=== PATIENT | female | born 1965 | race Caucasian/White ===

== ENCOUNTER 2016-11-14 13:42 | Emergency (ER) | payer BC ==
[2012-09-13 18:15] VITALS: BMI 36.3
[2016-11-14 14:34] LABS: BASOPHILS 0.4 % (0-2); EOSINOPHILS 1.6 % (0-7); HEMATOCRIT 45.2 % (36.0-48.0); HEMOGLOBIN 14.9 g/dL (12-16); IMMATURE GRANULOCYTES 0.3 % (0-5); LYMPHOCYTES 47.2 % (15-50); MCH 30.5 pg (26.0-34.0); MCV 92.6 fL (80.0-100.0); MEAN PLATELET VOLUME 9.4 fL (7.4-10.4); MONOCYTES 6.8 % (2-11); NEUTROPHILS 43.7 % (40-80); PLATELET COUNT 292 10x3/uL (130-400); RBC 4.88 10x6/uL (4.00-5.40); RDW 13.9 % (11.5-14.5); WBC 10.2 10x3/uL (4.8-10.8)
[2016-11-14 14:43] LABS: APPEARANCE HAZY (CLEAR); BILIRUBIN NEGATIVE (NEGATIVE); COLOR YELLOW (YELLOW); GLUCOSE NEGATIVE (NEGATIVE); KETONE NEGATIVE (NEGATIVE); LEUKOCYTE ESTERASE 2+ (NEGATIVE); NITRITE NEGATIVE (NEGATIVE); PROTEIN TRACE mg/dL (NEGATIVE); UROBILINOGEN NORMAL (NORMAL)
[2016-11-14 14:45] LABS: BACTERIA MODERATE /hpf (NONE SEEN); MUCUS <1+ /lpf (NONE SEEN); WHITE CELLS - URINE >50 /hpf (0-5)
[2016-11-14 14:57] LABS: ALBUMIN 3.8 g/dL (3.4-5.0); ALKALINE PHOSPHATASE 67 U/L (46-116); ALT (SGPT) 49 U/L (10-68); CALC OSMOLALITY 284 mosm/kg (275-300); CALCIUM 9.6 mg/dL (8.5-10.1); CARBON DIOXIDE 31.4 mmol/L (21.0-32.0); CHLORIDE - SERUM 101 mmol/L (98-107); CREATININE - SERUM 0.8 mg/dL (0.6-1.3); POTASSIUM - SERUM 3.9 mmol/L (3.5-5.1); PROTEIN - SERUM 7.6 g/dL (6.4-8.2); SODIUM 140 mmol/L (136-145); UREA NITROGEN 17 mg/dL (7-18); eGFR NON AFRICAN AMERICAN 79 mL/min (90-120)
[2016-11-14 15:00] LABS: GLUCOSE 171 mg/dL (74-106)
== END 2016-11-14 21:50 | disposition home or self-care (01) ==
LOC: D.ER 13:42
PROVIDERS: Emergency Medicine
DX: N12 Tubulo-interstitial nephritis, not specified as acute or chronic (principal); N39.0 Urinary tract infection, site not specified; E11.9 Type 2 diabetes mellitus without complications; I10 Essential (primary) hypertension; F17.200 Nicotine dependence, unspecified, uncomplicated

== ENCOUNTER → 2017-03-07 16:56 | Outpatient (CLI) | payer MEDICAID ==
[2012-09-13 18:15] VITALS: BMI 36.3
== END | disposition home or self-care (01) ==
LOC: D.MAMMO 13:00
DX: N63 Unspecified lump in breast (principal)

== ENCOUNTER 2017-05-28 14:20 | Emergency (ER) | payer MEDICARE ==
[2012-09-13 18:15] VITALS: BMI 36.3
[2017-05-28 15:27] LABS: BASOPHILS 0.3 % (0-2); EOSINOPHILS 1.1 % (0-7); HEMATOCRIT 46.8 % (36.0-48.0); HEMOGLOBIN 15.8 g/dL (12-16); IMMATURE GRANULOCYTES 0.2 % (0-5); LYMPHOCYTES 44.5 % (15-50); MCH 30.6 pg (26.0-34.0); MCHC 33.8 g/dL (31.0-37.0); MCV 90.5 fL (80.0-100.0); MEAN PLATELET VOLUME 9.8 fL (7.4-10.4); MONOCYTES 6.7 % (2-11); NEUTROPHILS 47.2 % (40-80); PLATELET COUNT 323 10x3/uL (130-400); RBC 5.17 10x6/uL (4.00-5.40); RDW 14.3 % (11.5-14.5)
[2017-05-28 15:31] LABS: APPEARANCE HAZY (CLEAR); BILIRUBIN NEGATIVE (NEGATIVE); COLOR YELLOW (YELLOW); GLUCOSE NEGATIVE (NEGATIVE); KETONE NEGATIVE (NEGATIVE); NITRITE NEGATIVE (NEGATIVE); PROTEIN 2+ mg/dL (NEGATIVE); SPECIFIC GRAVITY 1.025 (1.005-1.020); UROBILINOGEN NORMAL (NORMAL)
[2017-05-28 15:37] LABS: BACTERIA MANY /hpf (NONE SEEN); EPITHELIAL CELLS 0-5 /hpf (0-5); MUCUS <1+ /lpf (NONE SEEN); RED CELLS - URINE >50 /hpf (0-5); WHITE CELLS - URINE >50 /hpf (0-5)
[2017-05-28 15:38] LABS: GRANULAR CAST OCC /lpf (NONE SEEN); HYALINE CAST RARE /lpf (NONE SEEN)
[2017-05-28 15:48] LABS: ALBUMIN 3.3 g/dL (3.4-5.0); ANION GAP 14.4 mmol/L (8-16); BILIRUBIN - TOTAL 0.5 mg/dL (0.2-1.3); CALCIUM 9.5 mg/dL (8.5-10.1); CARBON DIOXIDE 27.3 mmol/L (21.0-32.0); CREATININE - SERUM 0.9 mg/dL (0.6-1.3); POTASSIUM - SERUM 3.7 mmol/L (3.5-5.1); PROTEIN - SERUM 7.1 g/dL (6.4-8.2)
[2017-06-07] MEDS ORDERED: BENICAR HCT 20-1 TA1 PO (08:14)
[2017-06-07] MEDS ORDERED: SYNTHROID50 MCG PO (08:14)
[2017-06-07] MEDS ORDERED: CELEXA40 MG PO (08:15)
[2017-06-07] MEDS ORDERED: GLIMEPIRIDE2 MG PO (08:15)
[2017-06-07] MEDS ORDERED: GLUCOPHAGE500 MG PO (08:15)
[2017-06-07] MEDS ORDERED: MULTI-DAY VITAM1 TAB PO (08:16)
[2017-06-07] MEDS ORDERED: PROBIOTIC1 EAC1 PO (08:16)
[2017-06-07] MEDS ORDERED: ACTOS45 MG PO (08:16)
[2017-06-07] MEDS ORDERED: COENZYME Q10 PO (08:17)
[2017-06-07] MEDS ORDERED: KRILL OIL PO (08:17)
[2017-06-07] MEDS ORDERED: OMEPRAZOLE20 M1 PO (08:17)
[2017-06-07] MEDS ORDERED: PRIMROSE OIL PO (08:17)
[2017-06-07] MEDS ORDERED: OMEGA 3 FISH OI1 CAP PO (08:18)
[2017-06-08 20:10] VITALS: BMI 37.8
== END 2017-05-28 17:13 | disposition home or self-care (01) ==
LOC: D.ER 14:20
PROVIDERS: Nurse Practitioner Family
DX: N39.0 Urinary tract infection, site not specified (principal); N13.30 Unspecified hydronephrosis; N23 Unspecified renal colic; K21.9 Gastro-esophageal reflux disease without esophagitis; E03.9 Hypothyroidism, unspecified

== ENCOUNTER → 2017-05-31 11:06 | Outpatient (CLI) | payer MEDICARE ==
[2012-09-13 18:15] VITALS: BMI 36.3
[~2017-05-31 11:06] MED LIST: ACTOS45 MG PO; BENICAR HCT 20-1 TA1 PO; CELEXA40 MG PO; COENZYME Q10 PO; GLIMEPIRIDE2 MG PO; GLUCOPHAGE500 MG PO; KRILL OIL PO; MULTI-DAY VITAM1 TAB PO; NORCO 7.5/325 T1 TA1 PO; OMEGA 3 FISH OI1 CAP PO; OMEPRAZOLE20 M1 PO; PRIMROSE OIL PO; PROBIOTIC1 EAC1 PO; SYNTHROID50 MCG PO
[2017-06-08 20:10] VITALS: BMI 37.8
== END | disposition home or self-care (01) ==
LOC: D.RAD 11:06
DX: N20.0 Calculus of kidney (principal)

== ENCOUNTER 2017-06-08 05:59 | Inpatient (IN) | payer MEDICARE ==
[2017-06-07 08:58] LABS: HEMATOCRIT 45.3 % (36.0-48.0); MCH 30.5 pg (26.0-34.0); MCHC 33.1 g/dL (31.0-37.0); MCV 92.1 fL (80.0-100.0); MEAN PLATELET VOLUME 9.1 fL (7.4-10.4); RBC 4.92 10x6/uL (4.00-5.40); RDW 14.7 % (11.5-14.5); WBC 9.7 10x3/uL (4.8-10.8)
[2017-06-07 09:08] LABS: CALC OSMOLALITY 280 mosm/kg (275-300); CALCIUM 9.3 mg/dL (8.5-10.1); CARBON DIOXIDE 31.2 mmol/L (21.0-32.0); CHLORIDE - SERUM 101 mmol/L (98-107); CREATININE - SERUM 0.7 mg/dL (0.6-1.3); POTASSIUM - SERUM 3.9 mmol/L (3.5-5.1); SODIUM 138 mmol/L (136-145); UREA NITROGEN 18 mg/dL (7-18); eGFR NON AFRICAN AMERICAN > 90 mL/min (90-120)
[2017-06-07 09:14] LABS: GLUCOSE 160 mg/dL (74-106)
[~2017-06-08] VITALS: Ht 154.9 cm; Wt 90.7 kg
--- NOTE | ~2017-06-08 | HEMODYNAMI ---
PATIENT:LYNN WEST MEDICAL RECORD: [id number] : 61 LOCATION:D.RYAN ADMISSION DATE: 06/08/17 Generatedon:06/08/201710:54 Patient name: LYNN WEST Patient #: [id number] SSN: D OB: 1965 Date of study: 06/08/2017 Page: Of Hemodynamic Procedure Report Patient Data Patient Demographics Procedure consent was obtained First Name: LYNN Gender: Female Last Name: JENNA : 1965 Middle Initial: RAFITA Age: 52 year(s) Patient #: [id number] Race: Unknown Additional ID: [id number] Contact details [address]: [address] [place] [address] [place] State: [place] City: [place] Zip code: [address] Admission Admission Data Admission Date: 06/08/2017 Admission Time: 5:59 Procedure Procedure Types Cath Procedure Peripheral Cath Diagnostic Procedure Miscellaneous Procedure Description Procedure Date Procedure Date: 06/08/2017 Procedure Start Time: 10:20 Procedure Staff Name Function Chandler Zabala MD Performing Physician Bo Johnston RT Monitor Cindi Padron RT Scrub Linda Granados RN Nurse Procedure Data Cath Procedure Fluoroscopy Diagnostic fluoroscopy Total fluoroscopy Time: 8.9 time: 8.9 min min Diagnostic fluoroscopy Total fluoroscopy dose: 138 dose: 138 mGy mGy Contrast Material Contrast Material Type Amount (ml) Isovue 300 15 Procedure Medications Medication Administration Route Dosage Fentanyl I.V. 50 mcg Versed I.V. 1 mg Fentanyl I.V. 50 mcg Versed I.V. 1 mg Fentanyl I.V. 50 mcg Versed I.V. 1 mg Hemodynamics Rest Heart Rate: 58 (bpm) Snapshots Pre Cath Intra NCS Post Cath Vital Signs Time Heart Resp SPO2 etCO2 NIBP (mmHg) Rhythm Pain Sedation Rate (ipm) (%) (mmHg) Status Level (bpm) 9:53:57 52 21 99 37.2 157/84(118) NSR 0 (11) 10(A) , No pain 9:58:21 52 13 99 44 135/74(106) NSR 0 (11) 10(A) , No pain 10:03:21 52 10 99 46.4 Measuring NSR 0 (11) 10(A) , No pain 10:03:59 54 11 98 44.9 150/71(118) NSR 0 (11) 10(A) , No pain 10:08:28 52 20 98 41 112/75(107) NSR 0 (11) 10(A) , No pain 10:13:27 59 10 98 46.4 Measuring NSR 0 (11) 10(A) , No pain 10:13:41 70 9 99 30.4 148/88(122) NSR 0 (11) 10(A) , No pain 10:18:09 55 10 98 48.7 161/84(122) NSR 0 (11) 10(A) , No pain 10:22:40 51 32 98 54.7 154/81(124) NSR 0 (11) 10(A) , No pain 10:27:02 58 11 91 32.7 148/83(112) NSR 0 (11) 10(A) , No pain 10:31:22 59 9 95 31.2 150/89(125) NSR 0 (11) 10(A) , No pain 10:35:53 61 12 96 41 143/80(122) NSR 0 (11) 10(A) , No pain 10:40:51 72 19 98 37.2 Measuring NSR 0 (11) 10(A) , No pain 10:41:20 68 15 97 35 166/81(118) NSR 0 (11) 10(A) , No pain 10:45:55 63 19 95 36.5 149/85(126) NSR 0 (11) 10(A) , No pain 10:50:11 67 16 95 37.3 127/91(122) NSR 0 (11) 10(A) , No pain 10:54:27 65 11 95 40.3 142/89(126) NSR 0 (11) 10(A) , No pain Medications Time Medication Route Dose Verified Delivered Reason Notes Effectivene ss by by 10:22:30 Fentanyl I.V. 50 Chandler Mckeon for olesya Granados RN sedation 10:22:41 Versed I.V. 1 mg Chandler Mckeon for Vj Granados RN sedation 10:25:45 Fentanyl I.V. 50 Chandler Linda for mcg Vj Granados RN sedation 10:25:57 Versed I.V. 1 mg Chandler Linda for Vj Granados RN sedation 10:42:39 Fentanyl I.V. 50 Chandler Linda for mcg Vj Granados RN sedation 10:42:50 Versed I.V. 1 mg Chandler Linda for Vj Granados RN sedation Procedure Log Time Note 9:29:33 Bo Johnston RT (R) (CV) sent for patient. Start room use. 9:29:47 Time tracking: Regular hours 9:29:54 Plan of Care:Hemodynamics will remain stable., Cardiac rhythm will remain stable., Comfort level will be maintained., Respiratory function will remain adequate., Patient/ family verbilizes understanding of procedure., Procedure tolerated without complication., Recovers from procedure without complications.. 9:30:14 Patient received from Outpatients to IR Alert and oriented. Tansferred to table in Prone position. 9:30:16 Correct patient and procedure confirmed by team. 9:30:20 Signed procedure consent form obtained from patient. 9:30:21 ECG and BP/O2 sat monitors applied to patient. 9:30:22 - 9:30:28 Full Disclosure recording started 9:30:34 H&P Date Dictated: 06/08/2017 Within 30 days and on chart.. 9:30:35 Pre-procedure instructions explained to patient. 9:30:36 Pre-op teaching completed and patient verbalized understanding. 9:30:38 Family in waiting room. 9:30:40 Patient NPO since Midnight. 9:30:51 Is the patient allergic to Iodine/contrast media? No. 9:30:53 Is patient on blood thinner?No 9:30:55 Patient diabetic? No. 9:31:01 - 9:31:02 ----Pre-sedation anethsthesia assessment.---- 9:31:05 Previous problem with sedation/anesthesia? No ? 9:34:13 Snore? Yes 9:34:15 Sleep apnea? No 9:34:16 Deviated septum? No 9:34:17 Opens mouth fully? Yes 9:34:19 Sticks out tongue? Yes 9:34:21 Airway obstruction? No ? 9:34:24 Dentures? No ? 9:34:35 Patient pain scale 0/10 no pain. 9:34:39 Use device set IR Diagnostic 9:34:40 Bag Decanter (2001S) opened to sterile field. 9:34:41 Sterile Angiographic Pack opened to sterile field. 9:52:36 Vital chart was started 9:52:37 Baseline sample Acquired. 10:17:15 IV patent on arrival in right forearm with 0.9% NaCl at [facility]. 10:17:17 Sharps counted by scrub and verified by R.N. 10:17:17 Alarms reviewed by R. N. 10:17:25 Left abdomen area was prepped with chlora-prep and draped in sterile fashion 10:20:08 Physician arrived 10:20:08 --------ALL STOP TIME OUT------ 10:20:12 Final Timeout: patient, procedure, and site verified with staff and physician. All members of the team are in agreement. 10:20:17 Left abdomen site verified by team. 10:20:22 Sedation plan: IV Moderate Sedation Medication:Versed, Fentanyl 10:20:32 Procedure started. 10:20:55 Local anesthetic to Lumbar area with Lidocaine 1% by Chandler Zabala MD.INITIAL ACCESS ONLY 10:21:06 Terumo 5FR ANGLED 65CM glide catheter opened to sterile field. 10:21:07 KIT, INTRODUCER ACCUSTICK II W/C ([id number]) opened to sterile field. 10:22:30 Fentanyl 50 mcg I.V. was administered by Linda Granados RN; for sedation ; 10:22:41 Versed 1 mg I.V. was administered by Linda Granados RN; for sedation; 10:25:45 Fentanyl 50 mcg I.V. was administered by Linda Granados RN; for sedation ; 10:25:57 Versed 1 mg I.V. was administered by Linda Granados RN; for sedation; 10:34:41 EV3 NITINOL .018 80CM guide wire opened to sterile field. 10:38:39 Terumo ANGLE 260cm glide wire opened to sterile field. 10:39:04 TORQUE DEVICE PLASTIC .038 ( TD01) opened to sterile field. 10:40:[address] .035 145 glide wire opened to sterile field. 10:42:39 Fentanyl 50 mcg I.V. was administered by Linda Granados RN; for sedation ; 10:42:50 Versed 1 mg I.V. was administered by Linda Granados RN; for sedation; 10:44:50 SUTURE ETHILON 2-0 BLK MONO FS opened to sterile field. 10:46:17 Procedure ended.(Physican Out) 10:46:35 Fluoroscopy time 08.90 minutes. 10:46:40 Fluoroscopy dose: 138 mGy 10:46:40 Flurop Dose total: 138 10:46:48 Contrast amount:Isovue 300 15ml. 10:46:50 Insertion/operative site no bleeding no hematoma. 10:46:57 Post Lumbar area:stable 10:47:01 Post procedure instruction explained to patient.Patient verbalizes understanding. 10:54:06 Procedure and supply charges have been captured, reviewed, submitted an d are correct. 10:54:21 Report given to Outpatients. 10:54:24 Patient transfered to Outpatients with Stretcher. 10:54:48 Vital chart was stopped Device Usage Item Name Manufacture Quantity Catalog Hospital Part Current Minimal Lot# / Number Charge Number Stock Stock Serial# Code Bag Decanter Microtek 1 [id number] [id number] 5 () [employer] Sterile Cardinal 1 [id number] 346028 [id number] 5 Angiographic Health Pack Terumo 5FR Terumo 1 [id number] 096525 5 ANGLED 65CM glide catheter KIT, [place] 1 [id number] 165269 202021 320998 5 INTRODUCER Scientific ACCUSTICK II W/C ([id number]) EV3 NITINOL Ev3 1 [id number] 702167 [id number] 5 [id number] .018 80CM guide wire Terumo ANGLE Terumo 1 [id number] 221477 197473 100899 5 260cm glide wire TORQUE [place] 1 TD01 489542 215879 545726 5 DEVICE Scientific PLASTIC .038 ( TD01) [facility] 1 [id number] 061828 749528 5 [id number] [facility] .[facility] 145 glide wire SUTURE Ethicon 1 [id number] 826141 5 ETHILON 2-0 BLK MONO FS Signature Audit [place] Stage Time Signature Unsigned Intra-Procedure 06/08/2017 Bo 10:54:44 AM Preston RT (R) (CV) Signatures Monitor : Bo Signature : Preston RT Date : Time : [facility] [address] [place] [address]
--- NOTE | ~2017-06-08 | OP ---
PATIENT NAME: LYNN WEST MEDICAL RECORD: [id number] :61 LOCATION:D.MS [facility]2224 ADMISSION DATE:06/08/17 SURGEON: MAXWELL DC MD DATE OF OPERATION: 06/09/2017 SURGEON: Maxwell Dc MD ANESTHESIA: General anesthesia by Corry Soto CRNA PREOPERATIVE DIAGNOSIS: A 16-mm left renal stone. PROCEDURES: Cystoscopy, left percutaneous nephrolithotomy (PCNL). FINDINGS: Radiodense 16 mm left renal pelvis stone. ESTIMATED BLOOD LOSS: Less than 100 mL. 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 She has a history of kidney stones. She has been complaining of left lower quadrant abdominal pain with nausea for the past 3-4 months. At that time, she was uninsured until her disability kicked in and so she could not seek medical attention. Finally, she had a CT scan of the abdomen and pelvis performed through the Emergency Room that shows a 16-mm stone lodged in the left kidney. There is also possible 14-mm subcapsular calcification on the CT scan. She says that previously she was treated by Dr. 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 She comes to have the large renal stone removed by a percutaneous nephrolithotomy. Yesterday, she had a left nephroureteral access placed. She was actually scheduled for surgery yesterday. However, it was discovered that we did not have the NephroMax tract dilation balloon and we do not have any other means of dilating the tract. Therefore, the surgery had to be canceled. I admitted her to the hospital for pain control and today we are doing the surgery as this piece of equipment has arrived from the suppliers. She has allergies to ASPIRIN and MORPHINE. She was given Ancef precision assembler bench to the OR. DESCRIPTION OF PROCEDURE: The patient was given induction of general anesthetic while she was in supine position on the stretcher. Once she was asleep, we put her legs into frog leg position and prepped and draped her. Cystoscopy was performed and using grasping forceps, the left nephroureteral stent was accessed and pulled out of the urethra. This will allow our wire coming from the kidney to exit through the urethra where we can clamp it off to prevent backward migration, loss of the access tract. After the nephroureteral catheter was placed out through the urethra, we placed a 16-Kyrgyz Allen catheter for bladder drainage during the procedure. The Allen catheter was removed at the end of the case. We then turned the patient into the prone position on the Choco frame. We made sure that all pressure points were padded. The patient was then reprepped and redraped. We accessed the nephroureteral catheter. An Amplatz Super Stiff wire was placed into the lumen of the nephroureteral catheter and the wire was fed until it exited through the urethra. At this point, the circulating nurse was able to put a hemostat on the wire to prevent backwards migration of the wire. The nephroureteral catheter was then removed entirely by pulling it antegrade. We OPERATIVE REPORT [id number] LYNN WEST made an incision on either side of the wire. A #11 blade was used for this. We then were able to place the dual lumen catheter into the proximal ureter. Through the second lumen, we placed a Sensor wire to serve as a safety wire. Once the wires were in place, the dual lumen catheter was removed. The Sensor wire was clamped to the drapes to serve as our safety wire. We worked over the Super Stiff wire. The NephroMax tract dilation balloon was then inserted. The proximal tip of the balloon was inserted in the region of the UP junction. The balloon was inflated to 20 atmospheres of pressure and the working sheath was then slid down over the balloon into the kidney, renal pelvis. The balloon was then deflated and the access sheath was used to allow our scope to enter into the renal pelvis. With the balloon removed and the nephroscope from the kidney, we were still unable to identify the very large centrally located renal stone. The [place]i LithoClast device in the ultrasonic modality was used to completely break up the stone and remove the pieces. In a short period of time, the stone was entirely removed. There were also some small little punctate stones in the lower pole calices, which our irrigation and the [place]i LithoClast managed to fully remove. At the end of the procedure under fluoroscopy, we could not see any further radiodensities. I also looked as well as I could into every trey and did not see any further stones. At this point, we inserted our 24-Kyrgyz Malecot nephrostomy tube into the renal pelvis. The stylet of the Malecot was removed allowing the Malecot wings to expand. The safety wire was removed entirely. The Super Stiff wire was removed by pulling it downwards and completely out through the urethra. The circulating nurse was asked to do this function. The working sheath was removed. The nephrostomy tube was sutured to the skin using a 2-0 nylon stitch. The nephrostomy tube was then put to bag drainage. Allen catheter was removed. A dressing was applied over the nephrostomy tube consisting of 4 x 4 gauze and an ABD pad and tape. Finally, the patient was awakened and brought to the recovery room. TRANSINT:[id number] Voice Confirmation ID: [id number] DOCUMENT ID: [id number] MAXWELL DC MD at 1513 CC: [id number] DICTATION DATE: 06/09/17 165 THERAPEUTIC DIETITIAN: 06/09/17 1748 ADM IN [place] [address] [place] [address]
[~2017-06-08 05:59] MED LIST changes: -NORCO 7.5/325 T1 TA1 PO
[2017-06-08 08:40] VITALS: BP 121/61; BMI 37.8
[2017-06-08 08:49] LABS: APTT 27.8 SECONDS (22.8-39.4); INR 0.88 (0.85-1.17); PROTIME 11.5 SECONDS (11.6-15.0)
[2017-06-08 16:15] VITALS: BP 154/61
[2017-06-08 19:38] VITALS: BP 120/65
[2017-06-08 20:10] VITALS: BP 120/65; Ht 154.9 cm; Wt 90.7 kg
[2017-06-09] VITALS (7 sets, daily range): BP systolic 110–148; BP diastolic 53–74
[2017-06-10 08:45] VITALS: BP 147/71
[2017-06-10 12:45] VITALS: BP 161/77
[2017-06-10 17:29] VITALS: BP 111/69
[2017-06-11] VITALS: BP 101/43
[2017-06-11 04:00] VITALS: BP 112/57
[2017-06-11 10:47] VITALS: BP 125/48
[2017-06-11] MEDS ORDERED: NORCO 7.5/325 T1 TA1 PO (12:03)
[2017-06-22 17:13] LABS: CALCULI - CA OXALATE DIHYDRATE 70 % (()); CALCULI - CA OXALATE MONOHYDR 20 % (()); CALCULI - CALCIUM PHOSPHATE 10 % (()); CALCULI - COLOR Tan (()); CALCULI - COMMENT Note: (()); CALCULI - WEIGHT 1367.3 mg (())
== END 2017-06-11 14:52 | disposition home or self-care (01) | DRG 661 ==
LOC: D.OPS 05:59 → D.PAN 11:55 → D.OPS 12:30 → D.WS 14:44 → D.MS 14:44
PROVIDERS: Anesthesiology; General Practice; Specialist; Urology
PROC: BT1F1ZZ Fluoroscopy of Left Kidney, Ureter and Bladder using Low Osmolar Contrast (ICD-10-PCS; principal; 2017-06-08 09:30)
PROC: 0TC44ZZ Extirpation of Matter from Left Kidney Pelvis, Percutaneous Endoscopic Approach (ICD-10-PCS; 2017-06-09)
DX: N20.0 Calculus of kidney (principal)

== ENCOUNTER 2017-10-28 13:55 | Inpatient (IN) | payer MEDICARE ==
[~2017-10-28] VITALS: Ht 154.9 cm; Wt 90.9 kg
[~2017-10-28 13:55] MED LIST changes: +NORCO 7.5/325 T1 TA1 PO
[2017-10-28 16:48] LABS: APPEARANCE HAZY (CLEAR); BILIRUBIN NEGATIVE (NEGATIVE); COLOR YELLOW (YELLOW); GLUCOSE NEGATIVE (NEGATIVE); KETONE NEGATIVE (NEGATIVE); NITRITE NEGATIVE (NEGATIVE); PROTEIN NEGATIVE (NEGATIVE); UROBILINOGEN NORMAL (NORMAL)
[2017-10-28 16:52] LABS: EPITHELIAL CELLS 0-5 /hpf (0-5); RED CELLS - URINE 0-5 /hpf (0-5)
[2017-10-28 16:53] LABS: BACTERIA FEW /hpf (NONE SEEN); MUCUS <1+ /lpf (NONE SEEN)
[2017-10-28 17:59] LABS: BASOPHILS 0.4 % (0-2); HEMATOCRIT 44.9 % (36.0-48.0); HEMOGLOBIN 15.1 g/dL (12-16); IMMATURE GRANULOCYTES 0.3 % (0-5); LYMPHOCYTES 48.1 % (15-50); MCH 31.1 pg (26.0-34.0); MCHC 33.6 g/dL (31.0-37.0); MCV 92.6 fL (80.0-100.0); MEAN PLATELET VOLUME 9.3 fL (7.4-10.4); MONOCYTES 6.2 % (2-11); PLATELET COUNT 275 10x3/uL (130-400); RBC 4.85 10x6/uL (4.00-5.40); RDW 14.3 % (11.5-14.5); WBC 9.6 10x3/uL (4.8-10.8)
[2017-10-28 18:16] LABS: ALBUMIN 3.4 g/dL (3.4-5.0); ALKALINE PHOSPHATASE 63 U/L (46-116); ALT (SGPT) 31 U/L (10-68); BILIRUBIN - TOTAL 0.36 mg/dL (0.2-1.3); CALC OSMOLALITY 287 mosm/kg (275-300); CALCIUM 8.9 mg/dL (8.5-10.1); CARBON DIOXIDE 32.3 mmol/L (21.0-32.0); CHLORIDE - SERUM 104 mmol/L (98-107); CREATININE - SERUM 0.8 mg/dL (0.6-1.3); GLUCOSE 112 mg/dL (74-106); POTASSIUM - SERUM 4.1 mmol/L (3.5-5.1); PROTEIN - SERUM 7.4 g/dL (6.4-8.2); SODIUM 143 mmol/L (136-145); UREA NITROGEN 18 mg/dL (7-18); eGFR NON AFRICAN AMERICAN 79 mL/min (90-120)
[2017-10-28 18:17] LABS: C-REACTIVE PROTEIN < 0.2 mg/dL (0.0-0.9)
[2017-10-28 19:03] LABS: ERYTHROCYTE SEDIMENTATION RATE 5 mm/hr (0-30)
[2017-10-28 23:42] VITALS: BP 181/64; BMI 37.8
[2017-10-29 04:00] VITALS: BP 137/53
[2017-10-29 08:21] VITALS: BP 126/69
[2017-10-29 13:02] VITALS: Ht 154.9 cm; Wt 90.9 kg
[2017-10-29 16:35] VITALS: BP 134/41
[2017-10-30 04:20] VITALS: BP 130/41
[2017-10-30 07:42] VITALS: BP 117/52
[2017-10-30 12:24] VITALS: BP 127/52
[2017-10-30 16:42] VITALS: BP 130/69
[2017-10-31 04:00] VITALS: BP 152/65
[2017-10-31 08:29] VITALS: BP 166/63
[2017-10-31] MEDS ORDERED: TORADOL10 MG PO (12:34)
[2017-10-31] MEDS ORDERED: ROBAXIN500 MG PO (12:35)
== END 2017-10-31 15:30 | disposition home or self-care (01) | DRG 552 ==
LOC: D.ER 13:55 → D.EDHOLD 17:51 → D.MS 17:51
PROVIDERS: Nurse Practitioner Family
DX: M51.26 Other intervertebral disc displacement, lumbar region (principal); Q67.5 Congenital deformity of spine; M62.838 Other muscle spasm; S39.012A Strain of muscle, fascia and tendon of lower back, initial encounter; M48.061 Spinal stenosis, lumbar region without neurogenic claudication; X50.0XXD Overexertion from strenuous movement or load, subsequent encounter; E11.9 Type 2 diabetes mellitus without complications; I10 Essential (primary) hypertension; J44.9 Chronic obstructive pulmonary disease, unspecified; E03.9 Hypothyroidism, unspecified; F12.10 Cannabis abuse, uncomplicated; F32.9 Major depressive disorder, single episode, unspecified; L29.9 Pruritus, unspecified; T40.2X5A Adverse effect of other opioids, initial encounter; F17.200 Nicotine dependence, unspecified, uncomplicated

== ENCOUNTER → 2018-01-23 11:54 | Outpatient (CLI) | payer MEDICARE ==
[2017-10-29 13:02] VITALS: BMI 37.8
[~2018-01-23 11:54] MED LIST changes: +ROBAXIN500 MG PO; +TORADOL10 MG PO
== END | disposition home or self-care (01) ==
LOC: D.LABREF 11:54
DX: N39.0 Urinary tract infection, site not specified (principal)

== ENCOUNTER → 2018-02-07 17:40 | Outpatient (CLI) | payer MEDICARE ==
[2017-10-29 13:02] VITALS: BMI 37.8
== END | disposition home or self-care (01) ==
LOC: D.LABREF 17:40
DX: N39.0 Urinary tract infection, site not specified (principal)

== ENCOUNTER → 2018-02-08 15:37 | Outpatient (CLI) | payer MEDICARE ==
[2017-10-29 13:02] VITALS: BMI 37.8
== END | disposition home or self-care (01) ==
LOC: D.CT 15:37
DX: N23 Unspecified renal colic (principal)

== ENCOUNTER 2018-11-23 00:13 | Emergency (ER) | payer MEDICARE ==
[~2018-11-23] VITALS: Ht 154.9 cm; Wt 90.9 kg
[2018-11-23 00:19] VITALS: Ht 154.9 cm; Wt 90.9 kg
[2018-11-23] MEDS ORDERED: GLUCOPHAGE500 MG PO (00:23)
[2018-11-23] MEDS ORDERED: PROTONIX40 MG PO (00:24)
[2018-11-23 00:46] LABS: APPEARANCE CLEAR (CLEAR); COLOR YELLOW (YELLOW)
[2018-11-23 00:47] LABS: BACTERIA FEW /hpf (NONE SEEN); BILIRUBIN NEGATIVE (NEGATIVE); EPITHELIAL CELLS OCC /hpf (0-5); GLUCOSE NEGATIVE (NEGATIVE); KETONE NEGATIVE (NEGATIVE); NITRITE NEGATIVE (NEGATIVE); PROTEIN TRACE mg/dL (NEGATIVE); RED CELLS - URINE 0-5 /hpf (0-5); SPECIFIC GRAVITY 1.015 (1.005-1.020); UROBILINOGEN NORMAL (NORMAL)
[2018-11-23 01:14] LABS: BASOPHILS 0.3 % (0-2); EOSINOPHILS 0.7 % (0-7); HEMATOCRIT 40.8 % (36.0-48.0); HEMOGLOBIN 14.3 g/dL (12-16); IMMATURE GRANULOCYTES 0.3 % (0-5); LYMPHOCYTES 44.8 % (15-50); MCH 31.1 pg (26.0-34.0); MCV 88.7 fL (80.0-100.0); MONOCYTES 6.2 % (2-11); NEUTROPHILS 47.7 % (40-80); PLATELET COUNT 255 10x3/uL (130-400); RDW 13.2 % (11.5-14.5); WBC 13.3 10x3/uL (4.8-10.8)
[2018-11-23 01:40] LABS: ALBUMIN 3.4 g/dL (3.4-5.0); ALKALINE PHOSPHATASE 63 U/L (46-116); ALT (SGPT) 35 U/L (10-68); BILIRUBIN - TOTAL 0.29 mg/dL (0.2-1.3); CALC OSMOLALITY 287 mosm/kg (275-300); CALCIUM 9.2 mg/dL (8.5-10.1); CARBON DIOXIDE 33.5 mmol/L (21.0-32.0); CHLORIDE - SERUM 104 mmol/L (98-107); CREATININE - SERUM 0.8 mg/dL (0.6-1.3); GLUCOSE 142 mg/dL (74-106); POTASSIUM - SERUM 3.8 mmol/L (3.5-5.1); PROTEIN - SERUM 6.7 g/dL (6.4-8.2); SODIUM 143 mmol/L (136-145); UREA NITROGEN 15 mg/dL (7-18); eGFR NON AFRICAN AMERICAN 79 mL/min (90-120)
[2018-11-23] MEDS ORDERED: ZOFRAN8 MG PO (02:58)
[2018-11-23] MEDS ORDERED: MACROBID100 MG PO (02:58)
[2018-11-23 03:38] VITALS: BP 130/82
== END 2018-11-23 03:38 | disposition home or self-care (01) ==
LOC: D.ER 00:13
PROVIDERS: Family Medicine
DX: N39.0 Urinary tract infection, site not specified (principal)